=== PATIENT | male | born 1990 | race Caucasian/White ===

== ENCOUNTER 2019-04-10 18:45 | Emergency (ER) | payer BC ==
--- NOTE | 2019-04-10 18:53 | EDM.PDOC ---
ED HPI GENERAL MEDICAL PROBLEM - General Chief Complaint: Respiratory Problem Stated Complaint: COUGH Time Seen by Provider: 04/10/19 18:46 Source of Information: Reports: Patient History Limitations: Reports: No Limitations - History of Present Illness INITIAL COMMENTS - FREE TEXT/NARRATIVE: HISTORY AND PHYSICAL: History of present illness: Patient is a 28-year-old male who presents to the emergency room with complaints of cough x3 days. He states that over the past 1 to 2 days he has had right-sided chest pain when he coughs. He denies any chest pain while at rest, moving, or deep breathing (only when coughing). Patient denies any fever , chills, headache, change in vision, syncope or near syncope. Denies any chest pain, back pain, or shortness of breath. Denies any abdominal pain, nausea, vomiting, diarrhea, constipation or dysuria. Has not noted any blood in urine or stool. Patient has been eating and drinking appropriately. Review of systems: As per history of present illness and below otherwise all systems reviewed and negative. Past medical history: As per history of present illness and as reviewed below otherwise noncontributory. Surgical history: As per history of present illness and as reviewed below otherwise noncontributory. Social history: See social history for further information Family history: As per history of present illness and as reviewed below otherwise noncontributory. Physical exam: General: Well developed and well nourished 28 year old female. A&O x 3. Nontoxic appearing and in no acute distress. HEENT: Atraumatic, normocephalic, pupils equal and reactive bilaterally, negative for conjunctival pallor or scleral icterus, mucous membranes moist, TMs normal bilaterally, throat clear, neck supple, nontender, trachea midline. No drooling or trismus noted. No meningeal signs. No hot potato voice noted. Lungs: Clear to auscultation, breath sounds equal bilaterally, chest nontender. Heart: S1S2, regular rate and rhythm without overt murmur Abdomen: Soft, nondistended, nontender. Negative for masses or hepatosplenomegaly. Negative for costovertebral tenderness. Pelvis: Stable nontender. Skin: Intact, warm, dry. No lesions or rashes noted. Extremities: Atraumatic, moves all extremities per self without difficulty or deficits, negative for cords or calf pain. Neurovascular unremarkable. Neuro: Awake, alert, oriented. Cranial nerves II through XII unremarkable. Cerebellum unremarkable. Motor and sensory unremarkable throughout. Exam nonfocal. Notes: Supportive care measures were reviewed and discussed. Voices understanding and is agreeable to plan of care. Denies any further questions or concerns at this time. Diagnostics: Influenza, CXR Therapeutics: Duo Neb Prescription: Zpak Impression: Bronchitis Plan: 1. Take medications as prescribed. 2. Follow up with your primary care provider 3. Return to the ED as needed as discussed. Definitive disposition and diagnosis as appropriate pending reevaluation and review of above. Questions chest Pain Score (Numeric/FACES): 6 - Related Data Allergies Allergy/AdvReac Type Severity Reaction Status Date / Time No Known Allergies Allergy Verified 04/10/19 18:57 Home Meds: Home Meds . [No Known Home Meds] 04/10/19 [History] ED ROS GENERAL - Review of Systems Review Of Systems: Comprehensive ROS is negative, except as noted in HPI. ED EXAM, GENERAL - Physical Exam Exam: See Below (See dictation) Course - Vital Signs Last Recorded V/S: Last Vital Signs Temp 98.4 F 04/10/19 18:50 Pulse 72 04/10/19 18:50 Resp 18 04/10/19 18:50 BP 135/84 04/10/19 18:50 Pulse Ox 100 04/10/19 18:50 - Orders/Labs/Meds Orders: Active Orders 24 hr Category Date Time Status RT Aerosol Therapy [RC] ASDIRECTED Care 04/10/19 19:07 Active Meds: Medications Discontinued Medications Generic Name Dose Route Start Last Admin Trade Name Regan PRN Reason Stop Dose Admin Albuterol/Ipratropium 3 ml 04/10/19 19:07 04/10/19 19:24 Duoneb 3.0-0.5 Mg/3 Ml NEB 04/10/19 19:08 3 ml ONETIME ONE Administration Departure - Departure Time of Disposition: 19:50 Disposition: Home, Self-Care 01 Clinical Impression: Bronchitis - Discharge Information Instructions: Acute Bronchitis, Adult, [id number] Referrals: PCP,Unknown [Primary Care Provider] - Forms: ED Department Discharge Additional Instructions: The following information is given to patients seen in the emergency department who are being discharged to home. This information is to outline your options for follow-up care. We provide all patients seen in our emergency department with a follow-up referral. The need for follow-up, as well as the timing and circumstances, are variable depending upon the specifics of your emergency department visit. If you don't have a primary care physician on staff, we will provide you with a referral. We always advise you to contact your personal physician following an emergency department visit to inform them of the circumstance of the visit and for follow-up with them and/or the need for any referrals to a consulting specialist. The emergency department will also refer you to a specialist when appropriate. This referral assures that you have the opportunity for follow-up care with a specialist. All of these measure are taken in an effort to provide you with optimal care, which includes your follow-up. Under all circumstances we always encourage you to contact your private physician who remains a resource for coordinating your care. When calling for follow-up care, please make the office aware that this follow-up is from your recent emergency room visit. If for any reason you are refused follow-up, please contact the [facility] Emergency Department at and asked to speak to the emergency department charge nurse. [facility] [address] [place] [id number] [id number] 1. Take medications as prescribed. 2. Follow up with your primary care provider 3. Return to the ED as needed as discussed. Sepsis Event Note - Focused Exam Vital Signs: Vital Signs Temp Pulse Resp BP Pulse Ox 04/10/19 18:50 98.4 F 72 18 135/84 100 Date Exam was Performed: 04/10/19 Time Exam was Performed: 19:49 - My Orders Last 24 Hours: My Active Orders 04/10/19 19:07 RT Aerosol Therapy [RC] ASDIRECTED - Assessment/Plan Last 24 Hours: My Active Orders 04/10/19 19:07 RT Aerosol Therapy [RC] ASDIRECTED
[2019-04-10] MEDS ORDERED: Albuterol/Ipratropium 3.0-0.5 MG/3 ML Neb Soln NEB ONE (19:07)
--- NOTE | 2019-04-10 19:49 | CR ---
INDICATION: Cough for 3 days. COMPARISON: 04/11/2011 FINDINGS: PA and lateral views of the chest were obtained. The lungs remain clear. No focal or diffuse infiltrates are present. The heart remains normal in size. The mediastinum is normal in appearance. The osseous structures are normal in appearance for the patient`s age. IMPRESSION: Normal chest two views. Dictated by Steve Danielson MD @ Apr 10 2019 7:46PM Signed by Dr. Steve Danielson @ Apr 10 2019 7:48PM
== END 2019-04-10 19:55 | disposition home or self-care (01) ==
LOC: MW.ED 18:45
DX: J40 Bronchitis, not specified as acute or chronic (principal)
CPT/HCPCS: 71046; 71046-26; 87804; 93005; 94640; 99282; 99284-25; J7620-GY

== ENCOUNTER 2020-07-22 18:06 | Emergency (ER) | payer BC ==
--- NOTE | 2020-07-22 18:18 | EDM.PDOC ---
ED HPI GENERAL MEDICAL PROBLEM - General Chief Complaint: Laceration Stated Complaint: RT POINTING FINGER CUT Time Seen by Provider: 07/22/20 18:10 Source of Information: Reports: Patient History Limitations: Reports: No Limitations - History of Present Illness INITIAL COMMENTS - FREE TEXT/NARRATIVE: 29-year-old male no past medical history presents for laceration to right second digit. Patient was shaving when he excellently cut the end of his finger. He was unable to get the bleeding to stop prior to arrival. His tetanus is not up-to-date. No other injuries. No blood thinners. - Related Data Allergies Allergy/AdvReac Type Severity Reaction Status Date / Time No Known Allergies Allergy Verified 04/10/19 18:57 Home Meds: Home Meds . [No Known Home Meds] 04/10/19 [History] Past Medical History - Past Health History Medical/Surgical History: Denies Medical/Surgical History Social & Family History - Family History Family Medical History: No Pertinent Family History ED ROS GENERAL - Review of Systems Review Of Systems: Comprehensive ROS is negative, except as noted in HPI. ED EXAM, SKIN/RASH Exam: See Below General Appearance: Alert, WD/WN, No Apparent Distress Throat/Mouth: Normal Voice, No Airway Compromise Head: Atraumatic, Normocephalic Neck: Normal Inspection Respiratory/Chest: No Respiratory Distress, No Accessory Muscle Use Cardiovascular: Normal Peripheral Pulses, Regular Rate, Rhythm Extremities: Normal Inspection Neurological: Alert Psychiatric: Normal Affect, Normal Mood Skin: Warm, Dry, Intact, Normal Color Location, Skin: Other (1-cm laceration to palmar right 2nd digit PIP joint) ED SKIN PROCEDURES - Laceration/Wound Repair palmar aspect of R finger 2nd digit Appearance: Superficial Distal NVT: Neuro & Vascular Intact Anesthetic Type: Digital Local Anesthesia - Lidocaine (Xylocaine): 1% Plain Local Anesthetic Volume: 5cc Skin Prep: Isopropyl Alcohol (Alcohol) Closed with: Sutures Lac/Wound length In cm: 1 Suture Size: 5-0 # of Sutures: 2 Sterile Dressing Applied: Nurse Tetanus Status Addressed: Yes Complications: No Course - Orders/Labs/Meds Orders: Active Orders 24 hr Category Date Time Status Vaccines to be Administered [RC] PER UNIT ROUTINE Care 07/22/20 18:20 Active Meds: Medications Discontinued Medications Generic Name Dose Route Start Last Admin Trade Name Freq PRN Reason Stop Dose Admin Diphtheria/Tetanus/Acell Pertussis 0.5 ml 07/22/20 18:19 Diphtheria,Pertussis(Acell),Tetanus Vaccine 0.5 Ml Syringe IM 07/22/20 18:20 .ONCE ONE Lidocaine HCl 10 ml 07/22/20 18:19 Lidocaine 1% 5 Ml Sdv INJECT 07/22/20 18:20 ONETIME ONE Departure - Departure Time of Disposition: 18:39 Disposition: Home, Self-Care 01 Condition: Good Clinical Impression: Laceration - Discharge Information Instructions: Laceration Care, Adult Referrals: PCP,None [Primary Care Provider] - Forms: ED Department Discharge Additional Instructions: Please return in 7 to 10 days for suture removal. The following information is given to patients seen in the emergency department who are being discharged to home. This information is to outline your options for follow-up care. We provide all patients seen in our emergency department with a follow-up referral. The need for follow-up, as well as the timing and circumstances, are variable depending upon the specifics of your emergency department visit. If you don't have a primary care physician on staff, we will provide you with a referral. We always advise you to contact your personal physician following an emergency department visit to inform them of the circumstance of the visit and for follow-up with them and/or the need for any referrals to a consulting specialist. The emergency department will also refer you to a specialist when appropriate. This referral assures that you have the opportunity for follow-up care with a specialist. All of these measure are taken in an effort to provide you with optimal care, which includes your follow-up. Under all circumstances we always encourage you to contact your private physician who remains a resource for coordinating your care. When calling for follow-up care, please make the office aware that this follow-up is from your recent emergency room visit. If for any reason you are refused follow-up, please contact the [facility] Emergency Department at and asked to speak to the emergency department charge nurse. Please follow up with your primary care physician. If you do not have a primary care physician, see below: [facility] [address] [place] [id number] [facility] [address] [place] [address] [facility] [address], [place] [address] - My Orders Last 24 Hours: My Active Orders 07/22/20 18:20 Vaccines to be Administered [RC] PER UNIT ROUTINE - Assessment/Plan Last 24 Hours: My Active Orders 07/22/20 18:20 Vaccines to be Administered [RC] PER UNIT ROUTINE
[2020-07-22] MEDS ORDERED: Diphtheria,Pertussis(Acell),Tetanus Vaccine 0.5 ML Syringe IM ONE (18:19)
== END 2020-07-22 18:56 | disposition home or self-care (01) ==
LOC: MW.ED 18:06
DX: S61.210A Laceration without foreign body of right index finger without damage to nail, initial encounter (principal); Z23 Encounter for immunization; W26.8XXA Contact with other sharp object(s), not elsewhere classified, initial encounter
CPT/HCPCS: 12001; 90471; 90715; 99282; 99282-25

== ENCOUNTER 2020-07-31 12:38 | Emergency (ER) | payer BC | END 2020-07-31 12:40 | disposition home or self-care (01) | LOC: MW.ED 12:38 | DX: S61.210D Laceration without foreign body of right index finger without damage to nail, subsequent encounter (principal); Z48.02 Encounter for removal of sutures | CPT/HCPCS: 99281 ==